=== PATIENT | male | born 1965 | race Caucasian/White ===

== ENCOUNTER 2021-10-31 16:48 | Observation (INO) ==
[2021-10-31] MEDS: SNACK - Diabetic Appropriate PO SCH (21:00)
[2021-10-31 21:26] LABS: BASOPHILS # (AUTO) 0.1 X10^3/uL (0.0-0.1); BASOPHILS % (AUTO) 0.5 % (0.2-1.0); EOSINOPHILS # (AUTO) 0.1 x10^3/uL (0.0-0.2); EOSINOPHILS % (AUTO) 0.4 % (0.9-2.9); HEMATOCRIT 40.8 % (42.0-54.0); LYMPHOCYTES # (AUTO) 1.9 X10^3/uL (1.3-2.9); LYMPHOCYTES % (AUTO) 14.7 % (21.0-51.0); MEAN CORPUSCULAR HEMOGLOBIN 30.5 pg (27.0-34.0); MEAN CORPUSCULAR HGB CONC 34.3 g/dL (33.0-35.0); MEAN CORPUSCULAR VOLUME 88.7 fL (80.0-100.0); MEAN PLATELET VOLUME 9.3 fL (7.4-11.0); MONOCYTES # (AUTO) 0.7 x10^3/uL (0.3-0.8); MONOCYTES % (AUTO) 5.6 % (0.0-13.0); NEUTROPHILS # (AUTO) 10.3 x10^3/uL (2.2-4.8); NEUTROPHILS % (AUTO) 78.8 % (42.0-75.0); RED CELL DISTRIBUTION WIDTH 13.5 % (11.6-16.5)
[2021-10-31] MEDS ORDERED: NS 1,000 ML IV 1,000 ML ONE (21:33)
[2021-10-31 21:37] LABS: CALCIUM 8.5 mg/dL (8.5-10.1); CARBON DIOXIDE 29.2 mmol/L (21-32); COR CA(FOR HYPOALB) 9.3 mg/dL (8.5-10.1); CREATININE 1.73 mg/dL (0.70-1.30); TOTAL PROTEIN 7.4 g/dL (6.4-8.2)
[2021-10-31] MEDS: NS 1,000 ML IV 1,000 ML IV SCH (22:07)
[2021-10-31] MEDS: NovoLIN R (or HumuLIN R) SUBCUT PRN (22:49)
[2021-10-31] MEDS: ZYVOX 600MG IV 600 MG/300 ML BAG IV SCH ×2 (23:21→23:22)
[2021-11-01] MEDS: INVanz INJ 1 GRAM VIAL 1 G in NS 100 ML IV 100 ML IV SCH ×2 (00:30→23:00)
[2021-11-01 04:42] VITALS: BMI 28.3
[2021-11-01 06:20] LABS: BASOPHILS % (AUTO) 0.5 % (0.2-1.0); EOSINOPHILS # (AUTO) 0.1 x10^3/uL (0.0-0.2); EOSINOPHILS % (AUTO) 1.1 % (0.9-2.9); HEMATOCRIT 34.2 % (42.0-54.0); HEMOGLOBIN 12.1 g/dL (13.5-18.0); LYMPHOCYTES # (AUTO) 2.2 X10^3/uL (1.3-2.9); LYMPHOCYTES % (AUTO) 23.8 % (21.0-51.0); MEAN CORPUSCULAR HEMOGLOBIN 30.8 pg (27.0-34.0); MEAN CORPUSCULAR HGB CONC 35.3 g/dL (33.0-35.0); MEAN CORPUSCULAR VOLUME 87.4 fL (80.0-100.0); MEAN PLATELET VOLUME 9.3 fL (7.4-11.0); MONOCYTES # (AUTO) 0.8 x10^3/uL (0.3-0.8); MONOCYTES % (AUTO) 8.5 % (0.0-13.0); NEUTROPHILS # (AUTO) 6.1 x10^3/uL (2.2-4.8); NEUTROPHILS % (AUTO) 66.1 % (42.0-75.0); RED BLOOD COUNT 3.92 X10^6/uL (4.7-6.0); RED CELL DISTRIBUTION WIDTH 13.6 % (11.6-16.5); WHITE BLOOD COUNT 9.3 X10^3/uL (3.6-10.0)
[2021-11-01 06:29] LABS: ALANINE AMINOTRANSFERASE 11 Units/L (12-78); ALBUMIN 2.3 g/dL (3.4-5.0); ALKALINE PHOSPHATASE 79 Units/L (46-116); ASPARTATE AMINO TRANSFERASE 13 Units/L (15-37); BLOOD UREA NITROGEN 15 mg/dL (7-18); CALCIUM 7.9 mg/dL (8.5-10.1); CARBON DIOXIDE 28.2 mmol/L (21-32); CHLORIDE 105 mmol/L (98-107); COR CA(FOR HYPOALB) 9.3 mg/dL (8.5-10.1); COR NA(FOR HYPERGLY) 142 mmol/L (136-145); CREATININE 1.35 mg/dL (0.70-1.30); SODIUM 140 mmol/L (136-145); TOTAL PROTEIN 5.8 g/dL (6.4-8.2); eGFR NON BLACK RACES 58 (>60)
[2021-11-01] MEDS: ZYVOX 600MG IV 600 MG/300 ML BAG IV SCH ×2 (09:02→20:35)
[2021-11-01] MEDS: NS 1,000 ML IV 1,000 ML IV SCH (14:08)
[2021-11-01] MEDS: NovoLIN R (or HumuLIN R) SUBCUT PRN ×3 (15:14→20:35)
[2021-11-01] MEDS ORDERED: PREDNISONE TAB 20 MG PO ONE ×3 (17:30→22:30)
[2021-11-01] MEDS: SNACK - Diabetic Appropriate PO SCH (20:00)
[2021-11-02] MEDS ORDERED: PREDNISONE TAB 20 MG PO ONE ×3 (00:30→08:30)
[2021-11-02] MEDS: NS 1,000 ML IV 1,000 ML IV SCH ×2 (01:15→14:44)
[2021-11-02] MEDS: NovoLIN R (or HumuLIN R) SUBCUT PRN ×4 (06:00→21:00)
[2021-11-02] MEDS ORDERED: BENADRYL CAP 50 MG PO ONE ×2 (06:30→08:30)
[2021-11-02] MEDS: ZYVOX 600MG IV 600 MG/300 ML BAG IV SCH ×2 (08:15→21:00)
[2021-11-02] MEDS ORDERED: NS 100 ML IV 100 ML ONE (08:40)
--- NOTE | 2021-11-02 13:31 | CT ---
HISTORYwound left lower extremitySTUDYLOW EXT CTA W W/O CONCOMPARISONNoneTECHNIQUEMultiple CT axial images of the lower extremities were obtained before and after using IV contrast. 3D reconstructions utilizing axial MIPS imaging was performed and reviewed. Dose reduction techniques including Automated Exposure Control (AEC) and adjustment of mA and kV were utilized.Stenoses are measured using NASCET criteria.FINDINGSImages were obtained from the diaphragm to the toes.Without contrast:Vascular calcifications are present compatible with atherosclerosis.With contrast: Aorta has a normal caliber with no aneurysm, dissection, or stenosis. All 3 mesenteric vessels are patent. Minor stenosis at the origin of the celiac axis. Two arteries to the right kidney and 1 to the left.No significant common iliac or external iliac stenosis. Both internal iliac arteries are patent.Right lower extremity: There is mild atherosclerotic disease with mild stenosis in the proximal superficial femoral artery and in the proximal popliteal artery. All 3 vessels are patent at the trifurcation. I believe all 3 vessels extend into the distal calf but the peroneal artery becomes very tiny at the ankle and the anterior tibial artery has severe diffuse disease distally. The dominant vessel is the posterior tibial artery.Left lower extremity: Like the right side, there is mild stenosis in the proximal superficial femoral artery and in the proximal popliteal artery. There is an additional mild stenosis in the mid segment popliteal artery. All 3 vessels are patent at the trifurcation. All 3 vessels are patent but there is severe disease distally and in the mid segment of the anterior tibial artery and also in mid to distal peroneal artery. The dominant vessel is the posterior tibial artery.Body: No mass or inflammatory changes. Left kidney is slightly smaller than the right and there appears to be a delay in contrast excretion when compared to the right side. There is atherosclerotic disease in the main trunk of the left renal artery but I do not believe this causes significant stenosis. The findings might be due to a very mild chronic hydronephrosis. Recommend correlation with sonography.Diffuse bladder wall thickening is present measuring up to 7-8 mm. The most common etiologies are chronic bladder outlet obstruction and neurogenic bladder. If the patient is symptomatic, this could be infectious cystitis. After cancer treatment, this could be radiation cystitis.Left inguinal lymphadenopathy may be reactive. There is also atrophy in the musculature of the lower leg on the left.IMPRESSION1. No significant inflow stenosis2. Three vessel runoff to the left and right foot, but with 2 vessels having severe disease3. Findings suggesting chronic mild left hydronephrosis; recommend correlation with sonography4. Diffuse bladder wall thickening5. Left inguinal lymphadenopathyElectronically signed by: Shelton Steven (Nov 02, 2021 13:29:54)
[2021-11-02] MEDS: SNACK - Diabetic Appropriate PO SCH (20:33)
[2021-11-02] MEDS: INVanz INJ 1 GRAM VIAL 1 G in NS 100 ML IV 100 ML IV SCH (22:32)
--- NOTE | 2021-11-03 01:28 | DR.H&P ---
H&P - History & Physical for Day of: H&P Date: 10/31/21 - Chief Complaint Chief Complaint: Left lower ext wound - History of Present Illness History of Present Illness: Patient is a 56 year old white male who is a direct admit from Dr. Alyssa galan office due to PVD, cellulitis of left lower ext and foot and necrotic toe. Patiet has an extensive history of PVD. Patient has had stents to right lower ext in past. 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 Patiet is also a diabetic. Patient reports second toe to left foot has been discolored for several weeks. Also reports redness, pain, and swelling of left lower ext. PMH HTN, DM, PVD and multiple other issues. Denies CP, SOB, fever, or any other cocerns. - Past Medical History Past Medical History: Diabetes, Hypertension Additional Medical History: PVD with stents - Past Surgical History Surgical History: CABG/Valve Surgery, Ortho Surgery, Other - Family History Family Medical History: Diabetes Mellitus, Hypertension - Social History Does patient currently use any type of tobacco product: Yes Have you used tobacco products in the last 12 months: Yes Type of Tobacco Use: Smokeless Alcohol Use: Occasionally Drug Use: None - Medications Home Medications: iodine Allergy (Severe, Verified 11/02/21 02:56) ANAPHALEXIS REACTION prochlorperazine [From Compazine] Allergy (Verified 10/31/21 21:22) CONTINUE taking the following medications apixaban [Eliquis] 5 mg PO BID 11/01/21 [History] ferrous sulfate [FeroSul] 325 mg PO BID 11/01/21 [History] hydrocodone-acetaminophen 1 tab PO Q6H PRN 11/01/21 [History] insulin detemir U-100 [Levemir FlexTouch U-100 Insuln] 30 unit SUBCUT HS 11/01/21 [History] midodrine 5 mg PO BID 11/01/21 [History] pregabalin 200 mg PO TID 11/01/21 [History] tamsulosin 0.4 mg PO DAILY 11/01/21 [History] - Review of Systems Constitutional: See HPI Eyes: See HPI ENT: See HPI Respiratory: See HPI Cardiovascular: See HPI Gastrointestinal: See HPI Genitourinary: See HPI Musculoskeletal: See HPI Skin: See HPI Neurological: See HPI - Physical Exam Vital Signs: Temperature 97.7 F Pulse Rate [Brachial] 78 Respiratory Rate 20 Blood Pressure [Right Arm] 133/64 O2 Sat by Pulse Oximetry 98 Oriented: Normal, Time, Person, Place Eyes: Normal Ear: Normal Nose: Normal Throat: Normal Respiratory: Clear Throughout Cardiovascular: Normal : Normal Auscultation: Bowel Sounds: Normal Palpation: Normal Tenderness: Normal Skin: Red, Tender, Other (Left lower ext, left 2nd toe necrotic, left great toe amputation, right partial foot amputation) Musculoskeletal: Instability Psychiatric: Normal Mood Description: Calm Affect: Normal Speech Pattern: Clear, Appropriate - Assessment/Plan (1) Left leg cellulitis Status: Acute Plan: Admit. IV abx. LAbs as ordered. CTA runoff (2) PVD (peripheral vascular disease) Status: Acute (3) IDDM (insulin dependent diabetes mellitus) Status: Acute (4) Left leg pain Status: Acute - Allergies Allergies/Adverse Reactions: Allergies Allergy/AdvReac Type Severity Reaction Status Date / Time iodine Allergy Severe ANAPHALEXIS Verified 11/02/21 02:56 REACTION prochlorperazine Allergy Verified 10/31/21 21:22 [From Compazine]
[2021-11-03] MEDS ORDERED: NORCO 10/325 TAB PO PRN (01:37)
[2021-11-03] MEDS: ELIQUIS PO SCH ×2 (01:54→09:58)
[2021-11-03] MEDS: PROAMATINE PO SCH ×2 (01:59→09:59)
[2021-11-03] MEDS: NS 1,000 ML IV 1,000 ML IV SCH (03:40)
[2021-11-03] MEDS: NEURONTIN CAP 100 MG PO SCH ×2 (05:31→14:48)
[2021-11-03 05:46] LABS: BASOPHILS % (AUTO) 0.2 % (0.2-1.0); HEMATOCRIT 37.4 % (42.0-54.0); HEMOGLOBIN 12.7 g/dL (13.5-18.0); LYMPHOCYTES # (AUTO) 1.4 X10^3/uL (1.3-2.9); LYMPHOCYTES % (AUTO) 10.7 % (21.0-51.0); MEAN CORPUSCULAR HGB CONC 33.9 g/dL (33.0-35.0); MEAN CORPUSCULAR VOLUME 88.6 fL (80.0-100.0); MEAN PLATELET VOLUME 9.6 fL (7.4-11.0); MONOCYTES # (AUTO) 0.6 x10^3/uL (0.3-0.8); MONOCYTES % (AUTO) 4.9 % (0.0-13.0); NEUTROPHILS # (AUTO) 11.2 x10^3/uL (2.2-4.8); NEUTROPHILS % (AUTO) 84.2 % (42.0-75.0); RED BLOOD COUNT 4.22 X10^6/uL (4.7-6.0); RED CELL DISTRIBUTION WIDTH 13.6 % (11.6-16.5); WHITE BLOOD COUNT 13.3 X10^3/uL (3.6-10.0)
[2021-11-03 05:54] LABS: ALBUMIN 2.5 g/dL (3.4-5.0); CALCIUM 8.1 mg/dL (8.5-10.1); CARBON DIOXIDE 28.9 mmol/L (21-32); COR CA(FOR HYPOALB) 9.3 mg/dL (8.5-10.1); CREATININE 2.14 mg/dL (0.70-1.30); TOTAL PROTEIN 6.1 g/dL (6.4-8.2)
[2021-11-03] MEDS: NovoLIN R (or HumuLIN R) SUBCUT PRN ×2 (06:08→12:25)
[2021-11-03] MEDS ORDERED: FERROUS GLUCONATE PO SCH (09:00)
[2021-11-03] MEDS ORDERED: FLOMAX PO SCH (09:00)
[2021-11-03] MEDS: ZYVOX 600MG IV 600 MG/300 ML BAG IV SCH (09:59)
[2021-11-03] MEDS ORDERED: NS 1,000 ML IV 1,000 ML IV SCH (15:00)
[2021-11-03 16:09] VITALS: BP 147/79
[2021-11-03] MEDS ORDERED: LEVEMIR SC SCH (21:00)
[2021-11-10] MEDS ORDERED: ELIQUIS PO SCH (01:37)
--- NOTE | 2022-01-16 22:14 | PCM.DCPLAN ---
Discharge Plan - Discharge Plan Hospital Course: Admit date 10/31/21 Discharge date 11/03/21 DOS 11/03/21 Admit diagnosis(1) Left leg cellulitis (2) PVD (peripheral vascular disease) (3) IDDM (insulin dependent diabetes mellitus) (4) Left leg pain Discharge diagnosis Same as admission Hospital Course Patient is a 56 year old white male who is a direct admit from Dr. Alyssa galan office due to PVD, cellulitis of left lower ext and foot and necrotic toe. Patient has an extensive history of PVD. Patient has had stents to right lower ext in past. 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 Patient is also a diabetic. Patient reports second toe to left foot has been discolored for several weeks. Also reports redness, pain, and swelling of left lower ext. PMH HTN, DM, PVD and multiple other issues. Denies CP, SOB, fever, or any other concerns. LAbs were within normal range. CTA performed (see report). Patient was adamant he does not want any further intervention at this time. States he has too much to do at home and will follow up outpatient with vascular. Discharged home on clinds. Discharge time spent >35 mins. Disposition: HOME, SELF-CARE Condition: Stable Health Concerns: Post Hospitalization: new medications and changes needed to prevent readmission or further decline. Pt educated and given instructions on all concerns. Care Plan Goals: Problem: Infection Goal: Temperature within normal limits. Resolved infection. Instructions: Follow provided instructions. Follow up with primary physician as directed. Contact primary care physician or report to the closest Emergency Room if condition worsens. Plan of Treatment: Continue with present treatment and follow up plan. Pt is to keep follow up appointment as instructed and take medications as ordered. Prescriptions: New clindamycin HCl 150 mg Capsule 150 mg PO QID Qty: 28 RF: 0 Transmission Status: Received by [facility] [id number] Eliquis 5 mg tablet 5 mg PO BID ferrous sulfate [FeroSul] 325 mg (65 mg iron) tablet 325 mg PO BID hydrocodone-acetaminophen 10-325 mg tablet 1 tab PO Q6H PRN Levemir FlexTouch U-100 Insuln 100 unit/mL (3 mL) insulin pen 30 unit SUBCUT HS midodrine 5 mg tablet 5 mg PO BID pregabalin 200 mg capsule 200 mg PO TID tamsulosin 0.4 mg capsule 0.4 mg PO DAILY - Orders to Discharge Patient Discharge Orders: Discharge (Routine); Ordered 11/03/21 Ordered By: MONIQUE HENDRIX - Follow ups/Referrals Follow ups/Referrals: MONIQUE HENDRIX [Primary Care Provider] - 1 WEEK - Instructions Instructions: Diabetes Mellitus and Foot Care, Peripheral Vascular Disease, [id number], Diabetes Mellitus and Skin Care, Cellulitis, Adult, [id number] Forms: Precautions for COVID19, [facility], Patient Portal, Social Distancing Print Language: TOGOLESE
--- NOTE | 2022-01-16 22:24 | PCM.PROG ---
Progress Note - Progress Note for Day of Date of Exam: 11/02/21 - Subjective Subjective: Patient is a 56 year old male who was admitted as per HPI. Pending CTA. Patient reports he wants to be discharged by Thrusday because he has things to do. States he does not want any further intervention at this time. No other concerns at present. - Past Medical Family Social History Past Med/Fam/Surg Hx: No changes since H&P Allergies: Allergies iodine Allergy (Severe, Verified 11/02/21 02:56) ANAPHALEXIS REACTION prochlorperazine [From Compazine] Allergy (Verified 10/31/21 21:22) - Review of Systems ROS: No change since H&P - Vital Signs and I&O's Vital Signs: Temperature 97.7 F Pulse Rate [Brachial] 73 Respiratory Rate 18 Blood Pressure [Left Arm] 147/79 Blood Pressure [Right Arm] 133/64 O2 Sat by Pulse Oximetry 99 - Physical Exam Oriented: Normal, Time, Person, Place Eyes: Normal Ear: Normal Nose: Normal Throat: Normal Respiratory: Normal Cardiovascular: Normal : Normal Auscultation: Bowel Sounds: Normal Palpation: Normal Tenderness: Normal Skin: Red, Tender, Other (Left lower ext, left 2nd toe necrotic, left great toe amputation, right partial foot amputation) Musculoskeletal: Instability Psychiatric: Normal Mood Description: Calm Affect: Normal Speech Pattern: Clear, Appropriate - Laboratory and Diagnostics Result Diagrams: 11/03/21 05:30 11/03/21 05:30 Labs: 10/31/21 21:11 Blood Blood Culture - Final 10/31/21 21:03 Blood Blood Culture - Final 11/02/21 05:20 Toe - Left Second Wound Gram Stain - Final 11/02/21 05:20 Toe - Left Second Wound Culture - Final Staphylococcus Aureus Laboratory WBC 13.3 X10^3/uL (3.6-10.0) H 11/03/21 05:30 RBC 4.22 X10^6/uL (4.7-6.0) L 11/03/21 05:30 Hgb 12.7 g/dL (13.5-18.0) L 11/03/21 05:30 Hct 37.4 % (42.0-54.0) L 11/03/21 05:30 MCV 88.6 fL (80.0-100.0) 11/03/21 05:30 MCH 30.0 pg (27.0-34.0) 11/03/21 05:30 MCHC 33.9 g/dL (33.0-35.0) 11/03/21 05:30 RDW 13.6 % (11.6-16.5) 11/03/21 05:30 Plt Count 222 X10^3/uL (150.0-450.0) 11/03/21 05:30 MPV 9.6 fL (7.4-11.0) 11/03/21 05:30 Neut % (Auto) 84.2 % (42.0-75.0) H 11/03/21 05:30 Lymph % (Auto) 10.7 % (21.0-51.0) L 11/03/21 05:30 [place] % (Auto) 4.9 % (0.0-13.0) 11/03/21 05:30 Eos % (Auto) 0.0 % (0.9-2.9) L 11/03/21 05:30 Baso % (Auto) 0.2 % (0.2-1.0) 11/03/21 05:30 Neut # (Auto) 11.2 x10^3/uL (2.2-4.8) H 11/03/21 05:30 Lymph # (Auto) 1.4 X10^3/uL (1.3-2.9) 11/03/21 05:30 [place] # (Auto) 0.6 x10^3/uL (0.3-0.8) 11/03/21 05:30 Eos # (Auto) 0.0 x10^3/uL (0.0-0.2) 11/03/21 05:30 Baso # (Auto) 0.0 X10^3/uL (0.0-0.1) 11/03/21 05:30 Absolute Nucleated RBC 0.0 /100WBC 11/03/21 05:30 Sodium 138 mmol/L (136-145) 11/03/21 05:30 Corrected Sodium 145 mmol/L (136-145) 11/03/21 05:30 Potassium 5.0 mmol/L (3.5-5.1) 11/03/21 05:30 Chloride 102 mmol/L (98-107) 11/03/21 05:30 Carbon Dioxide 28.9 mmol/L (21-32) 11/03/21 05:30 BUN 32 mg/dL (7-18) H 11/03/21 05:30 Creatinine 2.14 mg/dL (0.70-1.30) H 11/03/21 05:30 Est GFR (MDRD) Af Amer 41 (>60) L 11/03/21 05:30 Est GFR (MDRD) Non-Af 34 (>60) L 11/03/21 05:30 Glucose 404 mg/dL (65-99) H 11/03/21 05:30 POC Glucose (mg/dL) 400 mg/dL (65-99) H 11/03/21 05:15 Calcium 8.1 mg/dL (8.5-10.1) L 11/03/21 05:30 Corrected Calcium 9.3 mg/dL (8.5-10.1) 11/03/21 05:30 Total Bilirubin 0.20 mg/dL (0.2-1.0) 11/03/21 05:30 AST 11 Units/L (15-37) L 11/03/21 05:30 ALT 12 Units/L (12-78) 11/03/21 05:30 Alkaline Phosphatase 79 Units/L (46-116) 11/03/21 05:30 Total Protein 6.1 g/dL (6.4-8.2) L 11/03/21 05:30 Albumin 2.5 g/dL (3.4-5.0) L 11/03/21 05:30 Globulin 3.6 g/dL (2.5-4.5) 11/03/21 05:30 Albumin/Globulin Ratio 0.7 Ratio (1.1-2.1) L 11/03/21 05:30 SARS CoV-2 RNA Rapid SIMON Negative (NEGATIVE) 10/31/21 19:58 - Plan (1) Left leg cellulitis Status: Acute Plan: Admit. IV abx. LAbs as ordered. CTA runoff pending (2) PVD (peripheral vascular disease) Status: Acute (3) IDDM (insulin dependent diabetes mellitus) Status: Acute (4) Left leg pain Status: Acute
== END 2021-11-03 16:40 | disposition home or self-care (01) ==
LOC: MED/SURG
PROVIDERS: ADMIT Internal Medicine; ATTEND Internal Medicine